=== PATIENT | female | born 1930 | race Caucasian/White ===

== ENCOUNTER 2020-11-08 22:22 | Inpatient (IN) | payer MEDICARE ==
--- NOTE | 2020-11-08 23:00 | ED ---
Weakness HPI - General Stated complaint: Weakness Time Seen by Provider: 11/08/20 22:25 Source: patient Mode of arrival: EMS Limitations: no limitations - History of Present Illness Initial comments: This patient is an 89-year-old woman who presents mainly with the complaint of g eneralized weakness. She states that she would rather not be here, she rather be at home but that she is no longer able to get up and ambulate around her home. She uses a walker and finds that she is just too weak to use it. She denies focal weakness. She states she is weak everywhere. She states this is been getting worse over the past days to weeks. An addition she is having weeping to the bilateral lower extremities related to chronic lymphedema. She has not noted fever or chills. She is denying chest pain or dyspnea. She does have some underlying orthopnea. MD Complaint: generalized weakness -: week(s) Location: generalized Improves with: none Worsens with: exertion Associated Symptoms: rash - Related Data Home Medications Medication Instructions Recorded Confirmed Furosemide [Lasix] 60 mg PO DAILY 11/09/20 11/09/20 Metoprolol Succinate [Toprol XL] 50 mg PO DAILY 11/09/20 11/09/20 Pravastatin Sodium [Pravachol] 20 mg PO DAILY 11/09/20 11/09/20 Rivaroxaban [Xarelto] 15 mg PO HS 11/09/20 11/09/20 lisinopriL [Zestril] 5 mg PO DAILY 11/09/20 11/09/20 Previous Rx's Medication Instructions Recorded Sulfamethox-Tmp 800-160Mg [Bactrim 1 tab PO Q12HR 7 Days #14 tab 11/12/20 DS 800-160 mg] Allergies Allergy/AdvReac Type Severity Reaction Status Date / Time No Known Allergies Allergy Verified 11/09/20 08:29 Review of Systems ROS Statement: Those systems with pertinent positive or pertinent negative responses have been documented in the HPI. ROS Other: All systems not noted in ROS Statement are negative. Constitutional: Reports: weakness. Denies: fever, chills Eyes: Denies: vision change Respiratory: Denies: cough, dyspnea Cardiovascular: Reports: orthopnea, edema. Denies: chest pain, palpitations, syncope Gastrointestinal: Denies: abdominal pain, vomiting, diarrhea Genitourinary: Denies: dysuria, hematuria Musculoskeletal: Denies: back pain Skin: Reports: as per HPI, other (Weeping, bilateral lower extremities). Denies: rash Neurological: Denies: headache, weakness Past Medical History Past Medical History: COPD, Fibromyalgia, GERD/Reflux, Hyperlipidemia, Hypertension, Osteoarthritis (OA), Rheumatoid Arthritis (RA) Additional Past Medical History / Comment(s): IBS, spinal stenosis, basal cell carcinoma History of Any Multi-Drug Resistant Organisms: None Reported Past Surgical History: Appendectomy, Hysterectomy, Orthopedic Surgery, Tonsillectomy Additional Past Surgical History / Comment(s): colonoscopy Past Anesthesia/Blood Transfusion Reactions: No Reported Reaction Past Psychological History: Depression Past Alcohol Use History: None Reported Additional Past Alcohol Use History / Comment(s): She was a smoker of half pack a day for 45 years. She quit 18 years ago. She denies any medical marijuana, marijuana or street drug use. Patient denies any alcohol use or abuse. 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 She is currently living at home with her . There are no pets in the home. They have traveled in the past to [place] but has been a few years. Past Drug Use History: None Reported - Past Family History Mother Family Medical History: Respiratory Disorder ( at age 49 secondary to a cough and respiratory problem.) Father Family Medical History: Cancer (Throat. He had a history of being a greaser operator in the [place] area. He was also smoker. He at age 82.) Sister(s) Family Medical History: Cancer (colon) General Exam General appearance: alert, in no apparent distress Head exam: Present: atraumatic, normocephalic Eye exam: Present: normal appearance. Absent: scleral icterus, conjunctival injection ENT exam: Present: normal oropharynx Neck exam: Present: normal inspection, full ROM Respiratory exam: Present: normal lung sounds bilaterally, rales (Bilateral lower lung alarcon). Absent: respiratory distress, wheezes, rhonchi, stridor Cardiovascular Exam: Present: regular rate, irregular rhythm, normal heart sounds. Absent: systolic murmur, diastolic murmur, rubs, gallop GI/Abdominal exam: Present: soft. Absent: distended, tenderness, guarding, rebound, rigid, mass Back exam: Absent: CVA tenderness (R), CVA tenderness (L), vertebral tenderness Neurological exam: Present: alert Skin exam: Present: warm, dry, erythema, other (To the posterior aspect of the upper portions of bilateral legs, the patient has some desquamation and weeping areas.). Absent: intact, rash Course Vital Signs 11/08/20 11/09/20 11/09/20 22:30 00:06 01:00 Temperature 98.4 F Pulse Rate 82 76 Respiratory 20 19 19 Rate Blood Pressure 115/80 110/71 O2 Sat by Pulse 92 L 92 L Oximetry 11/09/20 11/09/20 11/09/20 02:14 02:29 03:00 Temperature 98.3 F Pulse Rate 89 87 Respiratory 18 16 Rate Blood Pressure 73/42 77/42 95/44 O2 Sat by Pulse 100 100 Oximetry 11/09/20 11/09/20 11/09/20 03:13 03:42 03:57 Temperature Pulse Rate 71 70 Respiratory 19 18 Rate Blood Pressure 95/44 94/47 92/52 O2 Sat by Pulse 96 96 Oximetry 11/09/20 04:39 Temperature Pulse Rate 85 Respiratory 20 Rate Blood Pressure 91/50 O2 Sat by Pulse 100 Oximetry EKG Findings - EKG Results: EKG: interpreted by ERMD, normal axis EKG shows: atrial fibrillation (Rate 109 bpm) - Blocks, [place], Hypertrophy, ST Abn: Repolarization changes or abnormalities: nonspecific abnormality, ST segment, and/or T wave Medical Decision Making - Lab Data Result diagrams: 11/13/20 06:07 11/13/20 06:07 Lab Results 11/09/20 11/09/20 11/09/20 Range/Units 00:05 00:05 00:05 WBC 19.4 H (3.8-10.6) k/uL RBC 3.90 (3.80-5.40) m/uL Hgb 11.6 (11.4-16.0) gm/dL Hct 34.8 (34.0-46.0) % MCV 89.0 (80.0-100.0) fL MCH 29.8 (25.0-35.0) pg MCHC 33.5 (31.0-37.0) g/dL RDW 12.3 (11.5-15.5) % Plt Count 475 H (150-450) k/uL MPV 6.8 Immature Gran % (Auto) % Absolute Nucleated RBC (0.00-0.00) X 10*3/uL Neutrophils % 88 % Lymphocytes % 5 % Monocytes % 4 % Eosinophils % 2 % Basophils % 0 % Immature Gran # (0.00-0.04) X 10*3/uL Neutrophils # 17.1 H (1.3-7.7) k/uL Lymphocytes # 0.9 L (1.0-4.8) k/uL Monocytes # 0.8 (0-1.0) k/uL Eosinophils # 0.4 (0-0.7) k/uL Basophils # 0.1 (0-0.2) k/uL NRBC/100 WBC Diff (0.0-0.0) /100 WBCS PT 11.5 (9.0-12.0) sec INR 1.1 (<1.2) APTT 23.8 (22.0-30.0) sec Sodium 132 L (137-145) mmol/L Potassium 5.2 H (3.5-5.1) mmol/L Chloride 106 (98-107) mmol/L Carbon Dioxide 19 L (22-30) mmol/L Anion Gap 7 mmol/L BUN 51 H (7-17) mg/dL Creatinine 1.71 H (0.52-1.04) mg/dL Est GFR (CKD-EPI)AfAm 30 (>60 ml/min/1.73 sqM) Est GFR (CKD-EPI)NonAf 26 (>60 ml/min/1.73 sqM) BUN/Creatinine Ratio (12.00-20.00) Ratio Glucose 113 H (74-99) mg/dL Plasma Lactic Acid [place] (0.7-2.0) mmol/L Calcium 8.7 (8.4-10.2) mg/dL Phosphorus 4.3 (2.5-4.5) mg/dL Magnesium 1.6 (1.6-2.3) mg/dL Total Bilirubin 0.6 (0.2-1.3) mg/dL AST 33 (14-36) U/L ALT 17 (4-34) U/L Alkaline Phosphatase 104 (38-126) U/L Troponin I (0.000-0.034) ng/mL NT-Pro-B Natriuret Pep pg/mL Total Protein 6.8 (6.3-8.2) g/dL Albumin 2.7 L (3.5-5.0) g/dL Globulin (1.6-3.3) g/dL Albumin/Globulin Ratio (1.60-3.17) g/dL TSH 2.350 (0.465-4.680) mIU/L Urine Color Urine Appearance (Clear) Urine pH (5.0-8.0) Ur Specific [place] (1.001-1.035) Urine Protein (Negative) Urine Glucose (UA) (Negative) Urine Ketones (Negative) Urine Blood (Negative) Urine Nitrite (Negative) Urine Bilirubin (Negative) Urine Urobilinogen (<2.0) mg/dL Ur Leukocyte Esterase (Negative) Urine RBC (0-5) /hpf Urine WBC (0-5) /hpf Urine WBC Clumps (None) /hpf Ur Squamous Epith Cells (0-4) /hpf Urine Bacteria (None) /hpf Urine Mucus (None) /hpf Influenza Type A (PCR) (Not Detectd) Influenza Type B (PCR) (Not Detectd) RSV (PCR) (Not Detectd) SARS-CoV-2 (PCR) (Not Detectd) 11/09/20 11/09/20 11/09/20 Range/Units 00:05 00:05 00:05 WBC (3.8-10.6) k/uL RBC (3.80-5.40) m/uL Hgb (11.4-16.0) gm/dL Hct (34.0-46.0) % MCV (80.0-100.0) fL MCH (25.0-35.0) pg MCHC (31.0-37.0) g/dL RDW (11.5-15.5) % Plt Count (150-450) k/uL MPV Immature Gran % (Auto) % Absolute Nucleated RBC (0.00-0.00) X 10*3/uL Neutrophils % % Lymphocytes % % Monocytes % % Eosinophils % % Basophils % % Immature Gran # (0.00-0.04) X 10*3/uL Neutrophils # (1.3-7.7) k/uL Lymphocytes # (1.0-4.8) k/uL Monocytes # (0-1.0) k/uL Eosinophils # (0-0.7) k/uL Basophils # (0-0.2) k/uL NRBC/100 WBC Diff (0.0-0.0) /100 WBCS PT (9.0-12.0) sec INR (<1.2) APTT (22.0-30.0) sec Sodium (137-145) mmol/L Potassium (3.5-5.1) mmol/L Chloride (98-107) mmol/L Carbon Dioxide (22-30) mmol/L Anion Gap mmol/L BUN (7-17) mg/dL Creatinine (0.52-1.04) mg/dL Est GFR (CKD-EPI)AfAm (>60 ml/min/1.73 sqM) Est GFR (CKD-EPI)NonAf (>60 ml/min/1.73 sqM) BUN/Creatinine Ratio (12.00-20.00) Ratio Glucose (74-99) mg/dL Plasma Lactic Acid [place] 1.6 (0.7-2.0) mmol/L Calcium (8.4-10.2) mg/dL Phosphorus (2.5-4.5) mg/dL Magnesium (1.6-2.3) mg/dL Total Bilirubin (0.2-1.3) mg/dL AST (14-36) U/L ALT (4-34) U/L Alkaline Phosphatase (38-126) U/L Troponin I 0.015 (0.000-0.034) ng/mL NT-Pro-B Natriuret Pep 3780 pg/mL Total Protein (6.3-8.2) g/dL Albumin (3.5-5.0) g/dL Globulin (1.6-3.3) g/dL Albumin/Globulin Ratio (1.60-3.17) g/dL TSH (0.465-4.680) mIU/L Urine Color Urine Appearance (Clear) Urine pH (5.0-8.0) Ur Specific [place] (1.001-1.035) Urine Protein (Negative) Urine Glucose (UA) (Negative) Urine Ketones (Negative) Urine Blood (Negative) Urine Nitrite (Negative) Urine Bilirubin (Negative) Urine Urobilinogen (<2.0) mg/dL Ur Leukocyte Esterase (Negative) Urine RBC (0-5) /hpf Urine WBC (0-5) /hpf Urine WBC Clumps (None) /hpf Ur Squamous Epith Cells (0-4) /hpf Urine Bacteria (None) /hpf Urine Mucus (None) /hpf Influenza Type A (PCR) (Not Detectd) Influenza Type B (PCR) (Not Detectd) RSV (PCR) (Not Detectd) SARS-CoV-2 (PCR) (Not Detectd) 11/09/20 11/09/20 11/09/20 Range/Units 03:54 03:54 06:57 WBC 15.17 H (3.8-10.6) k/uL RBC 3.35 L (3.80-5.40) m/uL Hgb 9.6 L (11.4-16.0) gm/dL Hct 30.9 L (34.0-46.0) % MCV 92.2 (80.0-100.0) fL MCH 28.7 (25.0-35.0) pg MCHC 31.1 L (31.0-37.0) g/dL RDW 12.6 (11.5-15.5) % Plt Count 381 (150-450) k/uL MPV 9.2 L Immature Gran % (Auto) 0.7 % Absolute Nucleated RBC 0 (0.00-0.00) X 10*3/uL Neutrophils % 77.6 % Lymphocytes % 11.2 % Monocytes % 8.3 % Eosinophils % 1.7 % Basophils % 0.5 % Immature Gran # 0.10 H (0.00-0.04) X 10*3/uL Neutrophils # 11.78 H (1.3-7.7) k/uL Lymphocytes # 1.70 (1.0-4.8) k/uL Monocytes # 1.26 H (0-1.0) k/uL Eosinophils # 0.26 (0-0.7) k/uL Basophils # 0.07 (0-0.2) k/uL NRBC/100 WBC Diff 0 (0.0-0.0) /100 WBCS PT (9.0-12.0) sec INR (<1.2) APTT (22.0-30.0) sec Sodium (137-145) mmol/L Potassium (3.5-5.1) mmol/L Chloride (98-107) mmol/L Carbon Dioxide (22-30) mmol/L Anion Gap mmol/L BUN (7-17) mg/dL Creatinine (0.52-1.04) mg/dL Est GFR (CKD-EPI)AfAm (>60 ml/min/1.73 sqM) Est GFR (CKD-EPI)NonAf (>60 ml/min/1.73 sqM) BUN/Creatinine Ratio (12.00-20.00) Ratio Glucose (74-99) mg/dL Plasma Lactic Acid [place] (0.7-2.0) mmol/L Calcium (8.4-10.2) mg/dL Phosphorus (2.5-4.5) mg/dL Magnesium (1.6-2.3) mg/dL Total Bilirubin (0.2-1.3) mg/dL AST (14-36) U/L ALT (4-34) U/L Alkaline Phosphatase (38-126) U/L Troponin I (0.000-0.034) ng/mL NT-Pro-B Natriuret Pep pg/mL Total Protein (6.3-8.2) g/dL Albumin (3.5-5.0) g/dL Globulin (1.6-3.3) g/dL Albumin/Globulin Ratio (1.60-3.17) g/dL TSH (0.465-4.680) mIU/L Urine Color Yellow Urine Appearance Cloudy H (Clear) Urine pH 5.0 (5.0-8.0) Ur Specific [place] 1.017 (1.001-1.035) Urine Protein 1+ H (Negative) Urine Glucose (UA) Negative (Negative) Urine Ketones Negative (Negative) Urine Blood Trace H (Negative) Urine Nitrite Negative (Negative) Urine Bilirubin Negative (Negative) Urine Urobilinogen <2.0 (<2.0) mg/dL Ur Leukocyte Esterase Large H (Negative) Urine RBC 11 H (0-5) /hpf Urine WBC >182 H (0-5) /hpf Urine WBC Clumps Few H (None) /hpf Ur Squamous Epith Cells 2 (0-4) /hpf Urine Bacteria Many H (None) /hpf Urine Mucus Rare H (None) /hpf Influenza Type A (PCR) Not Detected (Not Detectd) Influenza Type B (PCR) Not Detected (Not Detectd) RSV (PCR) Not Detected (Not Detectd) SARS-CoV-2 (PCR) Not Detected (Not Detectd) 11/09/20 11/09/20 11/10/20 Range/Units 06:57 18:13 06:20 WBC 13.25 H (3.8-10.6) k/uL RBC 3.52 L (3.80-5.40) m/uL Hgb 10.0 L (11.4-16.0) gm/dL Hct 32.5 L (34.0-46.0) % MCV 92.3 (80.0-100.0) fL MCH 28.4 (25.0-35.0) pg MCHC 30.8 L (31.0-37.0) g/dL RDW 12.8 (11.5-15.5) % Plt Count 471 H (150-450) k/uL MPV 9.0 L Immature Gran % (Auto) 0.5 % Absolute Nucleated RBC 0 (0.00-0.00) X 10*3/uL Neutrophils % 71.8 % Lymphocytes % 14.7 % Monocytes % 8.6 % Eosinophils % 3.9 % Basophils % 0.5 % Immature Gran # 0.07 H (0.00-0.04) X 10*3/uL Neutrophils # 9.51 H (1.3-7.7) k/uL Lymphocytes # 1.95 (1.0-4.8) k/uL Monocytes # 1.14 H (0-1.0) k/uL Eosinophils # 0.52 H (0-0.7) k/uL Basophils # 0.06 (0-0.2) k/uL NRBC/100 WBC Diff 0 (0.0-0.0) /100 WBCS PT (9.0-12.0) sec INR (<1.2) APTT (22.0-30.0) sec Sodium 133 L (137-145) mmol/L Potassium 4.9 (3.5-5.1) mmol/L Chloride 106 (98-107) mmol/L Carbon Dioxide 18.7 L (22-30) mmol/L Anion Gap 8.30 mmol/L BUN 52.0 H (7-17) mg/dL Creatinine 1.5 (0.52-1.04) mg/dL Est GFR (CKD-EPI)AfAm 35.7 L (>60 ml/min/1.73 sqM) Est GFR (CKD-EPI)NonAf 30.8 L (>60 ml/min/1.73 sqM) BUN/Creatinine Ratio 34.67 H (12.00-20.00) Ratio Glucose 97 (74-99) mg/dL Plasma Lactic Acid [place] 1.3 (0.7-2.0) mmol/L Calcium 8.1 L (8.4-10.2) mg/dL Phosphorus (2.5-4.5) mg/dL Magnesium (1.6-2.3) mg/dL Total Bilirubin 0.4 (0.2-1.3) mg/dL AST 26 (14-36) U/L ALT 17 (4-34) U/L Alkaline Phosphatase 83 (38-126) U/L Troponin I (0.000-0.034) ng/mL NT-Pro-B Natriuret Pep pg/mL Total Protein 5.7 L (6.3-8.2) g/dL Albumin 2.50 L (3.5-5.0) g/dL Globulin 3.2 (1.6-3.3) g/dL Albumin/Globulin Ratio 0.78 L (1.60-3.17) g/dL TSH (0.465-4.680) mIU/L Urine Color Urine Appearance (Clear) Urine pH (5.0-8.0) Ur Specific [place] (1.001-1.035) Urine Protein (Negative) Urine Glucose (UA) (Negative) Urine Ketones (Negative) Urine Blood (Negative) Urine Nitrite (Negative) Urine Bilirubin (Negative) Urine Urobilinogen (<2.0) mg/dL Ur Leukocyte Esterase (Negative) Urine RBC (0-5) /hpf Urine WBC (0-5) /hpf Urine WBC Clumps (None) /hpf Ur Squamous Epith Cells (0-4) /hpf Urine Bacteria (None) /hpf Urine Mucus (None) /hpf Influenza Type A (PCR) (Not Detectd) Influenza Type B (PCR) (Not Detectd) RSV (PCR) (Not Detectd) SARS-CoV-2 (PCR) (Not Detectd) 11/10/20 Range/Units 06:20 WBC (3.8-10.6) k/uL RBC (3.80-5.40) m/uL Hgb (11.4-16.0) gm/dL Hct (34.0-46.0) % MCV (80.0-100.0) fL MCH (25.0-35.0) pg MCHC (31.0-37.0) g/dL RDW (11.5-15.5) % Plt Count (150-450) k/uL MPV Immature Gran % (Auto) % Absolute Nucleated RBC (0.00-0.00) X 10*3/uL Neutrophils % % Lymphocytes % % Monocytes % % Eosinophils % % Basophils % % Immature Gran # (0.00-0.04) X 10*3/uL Neutrophils # (1.3-7.7) k/uL Lymphocytes # (1.0-4.8) k/uL Monocytes # (0-1.0) k/uL Eosinophils # (0-0.7) k/uL Basophils # (0-0.2) k/uL NRBC/100 WBC Diff (0.0-0.0) /100 WBCS PT (9.0-12.0) sec INR (<1.2) APTT (22.0-30.0) sec Sodium 137 (137-145) mmol/L Potassium 4.8 (3.5-5.1) mmol/L Chloride 106 (98-107) mmol/L Carbon Dioxide 21.8 (22-30) mmol/L Anion Gap 9.20 mmol/L BUN 50.0 H (7-17) mg/dL Creatinine 1.8 H (0.52-1.04) mg/dL Est GFR (CKD-EPI)AfAm 28.6 L (>60 ml/min/1.73 sqM) Est GFR (CKD-EPI)NonAf 24.7 L (>60 ml/min/1.73 sqM) BUN/Creatinine Ratio 27.78 H (12.00-20.00) Ratio Glucose 88 (74-99) mg/dL Plasma Lactic Acid [place] (0.7-2.0) mmol/L Calcium 7.9 L (8.4-10.2) mg/dL Phosphorus (2.5-4.5) mg/dL Magnesium 1.6 (1.6-2.3) mg/dL Total Bilirubin (0.2-1.3) mg/dL AST (14-36) U/L ALT (4-34) U/L Alkaline Phosphatase (38-126) U/L Troponin I (0.000-0.034) ng/mL NT-Pro-B Natriuret Pep pg/mL Total Protein (6.3-8.2) g/dL Albumin (3.5-5.0) g/dL Globulin (1.6-3.3) g/dL Albumin/Globulin Ratio (1.60-3.17) g/dL TSH (0.465-4.680) mIU/L Urine Color Urine Appearance (Clear) Urine pH (5.0-8.0) Ur Specific [place] (1.001-1.035) Urine Protein (Negative) Urine Glucose (UA) (Negative) Urine Ketones (Negative) Urine Blood (Negative) Urine Nitrite (Negative) Urine Bilirubin (Negative) Urine Urobilinogen (<2.0) mg/dL Ur Leukocyte Esterase (Negative) Urine RBC (0-5) /hpf Urine WBC (0-5) /hpf Urine WBC Clumps (None) /hpf Ur Squamous Epith Cells (0-4) /hpf Urine Bacteria (None) /hpf Urine Mucus (None) /hpf Influenza Type A (PCR) (Not Detectd) Influenza Type B (PCR) (Not Detectd) RSV (PCR) (Not Detectd) SARS-CoV-2 (PCR) (Not Detectd) Disposition Clinical Impression: Bilateral cellulitis of lower leg, Debility, unspecified Disposition: ADMITTED IP TO THIS HOSP Condition: Stable
[2020-11-09 00:11] LABS: Basophils # (A) 0.1 k/uL (0-0.2); Basophils % (A) 0 %; Eosinophils # (A) 0.4 k/uL (0-0.7); Eosinophils % (A) 2 %; HCT 34.8 % (34.0-46.0); HGB 11.6 gm/dL (11.4-16.0); Lymphocytes # (A) 0.9 k/uL (1.0-4.8); Lymphocytes % (A) 5 %; MCH 29.8 pg (25.0-35.0); MCHC 33.5 g/dL (31.0-37.0); Mean Platelet Volume 6.8; Monocytes # (A) 0.8 k/uL (0-1.0); Monocytes % (A) 4 %; Neutrophils # (A) 17.1 k/uL (1.3-7.7); Neutrophils % (A) 88 %; Platelet Count 475 k/uL (150-450); RDW 12.3 % (11.5-15.5); WBC 19.4 k/uL (3.8-10.6)
[2020-11-09 00:29] LABS: Albumin 2.7 g/dL (3.5-5.0); Calcium 8.7 mg/dL (8.4-10.2); Magnesium 1.6 mg/dL (1.6-2.3); Phosphorus 4.3 mg/dL (2.5-4.5); Potassium 5.2 mmol/L (3.5-5.1); Total Bilirubin 0.6 mg/dL (0.2-1.3); Total Protein 6.8 g/dL (6.3-8.2)
[2020-11-09 00:36] LABS: INR 1.1 (<1.2); Partial Thromboplastin Time 23.8 sec (22.0-30.0); Prothrombin Time 11.5 sec (9.0-12.0)
--- NOTE | 2020-11-09 01:06 | XR ---
EXAM: XR Chest, 1 View CLINICAL HISTORY: ITS.REASON XR Reason: Weakness TECHNIQUE: Frontal view of the chest. COMPARISON: 03/14/14. FINDINGS: Lungs: Bilateral interstitial prominence. Hilar opacities, more prominent on the right. Pleural space: No significant pleural effusion or pneumothorax. Heart: Stable cardiomediastinal silhouette. Mediastinum: See above. Bones/joints: Age-indeterminate deformity of the right humeral head/neck. IMPRESSION: 1. Bilateral interstitial prominence. Correlate clinically regarding edema or infection. 2. Hilar opacities, more prominent on the right. The possibility of adenopathy/mass or infiltrate is not excluded.
[2020-11-09] MEDS ORDERED: NAFCILLIN 2 GM in DEXTROSE 5% IN WATER 100 ML IVPB STA ×2 (01:38)
[2020-11-09] MEDS: diazePAM 2 MG TAB PO STA ×2 (02:14→06:15)
[2020-11-09] MEDS ORDERED: NALOXONE 0.4 MG/ML 1 ML VIAL IV PRN (02:59)
[2020-11-09] MEDS ORDERED: ACETAMINOPHEN TAB 325 MG TAB PO PRN (02:59)
[2020-11-09 04:16] LABS: Appearance,Urine Cloudy (Clear); Bacteria,Urine Many /hpf; Bilirubin,Urine Negative (Negative); Blood,Urine Trace (Negative); Color,Urine Yellow; Glucose,Urine (UA) Negative (Negative); Ketones,Urine Negative (Negative); Leukocyte Esterase,Urine Large (Negative); Mucus,Urine Rare /hpf; Nitrite,Urine Negative (Negative); Protein,Urine 1+ (Negative); RBC,Urine 11 /hpf (0-5); Specific Gravity,Urine 1.017 (1.001-1.035); Squamous Epithelial Cell,Urine 2 /hpf (0-4); Urobilinogen,Urine <2.0 mg/dL (<2.0); WBC,Urine >182 /hpf (0-5)
--- NOTE | 2020-11-09 05:13 | P.HPIM ---
History of Present Illness H&P Date: 11/09/20 Chief Complaint: generailzed weakness 89 year old female with chronic lymphedema , hypertension , COPD , arthritis patient comes from home, she does not elaborate during the interview, but reports that she lives in her own home, with her son who does not really pay a lot of attention to her needs. she ambulates using a walker, but over past 2 years she has been getting worse, and over past 1 week she has not been able to walk around anymore due to debility and feeling very weak despite trying to use a walker. she has chronic lymphedema and noticed weeping from her legs . she otherwise denies any fever, chills, chest pain , nausea or vomiting, . she denies SOB at rest, but she gets winded easily if she tries to stand up. she denies any GI bleeding . she does not have a doctor , but used to have a visiting nurse. she is not sure what medications she is supposed to take, but claims that there is a cementer hand who refills her meds she denies any GI bleeding , abd pain , nausea or vomiting . she admits to having a fall about 2 weeks ago, but she fell safely on a couch in the ED< blood work showed, leukocytosis , elevated creatinine CXR suggestive of pulmonary congestion , and possible hilar mass. Review of Systems Pertinent positives as noted in HPI. All other systems were reviewed and are negative Past Medical History Past Medical History: COPD, Fibromyalgia, GERD/Reflux, Hyperlipidemia, Hypertension, Osteoarthritis (OA), Rheumatoid Arthritis (RA) Additional Past Medical History / Comment(s): IBS, spinal stenosis, basal cell carcinoma History of Any Multi-Drug Resistant Organisms: None Reported Past Surgical History: Appendectomy, Hysterectomy, Orthopedic Surgery, Tonsillectomy Additional Past Surgical History / Comment(s): colonoscopy Past Anesthesia/Blood Transfusion Reactions: No Reported Reaction Past Psychological History: Depression Past Alcohol Use History: None Reported Additional Past Alcohol Use History / Comment(s): She was a smoker of half pack a day for 45 years. She quit 18 years ago. She denies any medical marijuana, marijuana or street drug use. Patient denies any alcohol use or abuse. 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 She is currently living at home with her . There are no pets in the home. They have traveled in the past to [place] but has been a few years. Past Drug Use History: None Reported - Past Family History Mother Family Medical History: Respiratory Disorder ( at age 49 secondary to a cough and respiratory problem.) Father Family Medical History: Cancer (Throat. He had a history of being a coagulating bath mixer in the [place] area. He was also smoker. He at age 82.) Sister(s) Family Medical History: Cancer (colon) Medications and Allergies Home Medications Medication Instructions Recorded Confirmed Type Adalimumab [Humira Pen] 40 mg SQ [id number] 01/05/14 01/05/14 History Shai Cit/Mag/D3/Zn/Renewable [employer] Project Manager/Marquez/Bor 1 each PO DAILY 01/05/14 01/05/14 History [Citracal-D3 Plus Magnesium Tab] Esomeprazole Magnesium [NexIUM] 40 mg PO DAILY 01/05/14 01/05/14 History Fluticasone Propionate [Flonase] 1 spray EA NOSTRIL DAILY PRN 01/05/14 01/05/14 History Furosemide [Lasix] 40 mg PO DAILY 01/05/14 01/05/14 History Montelukast [Singulair] 10 mg PO DAILY 01/05/14 01/05/14 History Pravastatin Sodium [Pravachol] 40 mg PO HS 01/05/14 01/05/14 History Triamcinolone 0.1% Cream [Kenalog] 1 applic TOPICAL TID 01/05/14 01/05/14 History Amoxicillin/Potassium Clav 1 each PO Q12HR 10 Days tab 01/17/14 Rx [Augmentin 875-125 Tablet] Acetaminophen Tab [Tylenol] 650 mg PO Q6HR PRN #1 tab 01/18/14 Rx Budesonide [Pulmicort] 1 mg INHALATION RT-BID #1 nebu 01/18/14 Rx Cetirizine HCl [Zyrtec] 10 mg PO HS #1 01/18/14 01/05/14 Rx HYDROcodone/APAP 5-325MG [[place] 1 each PO Q6HR PRN #30 tab 01/18/14 Rx 5-325] Ipratropium Nebulized [Atrovent 0.5 mg INHALATION RT-QID #1 nebu 01/18/14 Rx Nebulized 0.2 MG/ML] Levalbuterol Nebulized (Conc) 1.25 mg INHALATION RT-QID #1 ml 01/18/14 Rx [Xopenex Nebulized (Conc)] Magnesium Hydroxide [Milk of 2,400 mg PO DAILY PRN #1 ml 01/18/14 Rx Magnesia Concentrate] Metoprolol Tartrate [Lopressor] 75 mg PO BID #1 tab 01/18/14 Rx Multivitamins, Thera [Multivitamin 1 each PO DAILY@1200 #1 tab 01/18/14 Rx (formulary)] Nystatin 100,000 Unit/ml Susp 500,000 unit PO QID #1 cup 01/18/14 Rx [Mycostatin Oral Susp] Potassium Chloride ER [K-Dur 20] 20 meq PO BID #1 tab.er.prt 01/18/14 Rx Rivaroxaban [Xarelto] 15 mg PO BID #1 tab 01/18/14 Rx Sennosides-Docusate Sodium 2 each PO HS #1 tab 01/18/14 Rx [Senokot-S] bisacodyL [Dulcolax] 5 mg PO DAILY PRN #1 tablet. 01/18/14 Rx Allergies Allergy/AdvReac Type Severity Reaction Status Date / Time No Known Allergies Allergy Verified 03/14/14 10:27 Physical Exam Vitals: Vital Signs Temp Pulse Resp BP Pulse Ox 11/09/20 04:39 85 20 91/50 100 11/09/20 03:57 70 18 92/52 96 11/09/20 03:42 94/47 11/09/20 03:13 71 19 95/44 96 11/09/20 03:00 95/44 11/09/20 02:29 87 16 77/42 100 11/09/20 02:14 98.3 F 89 18 73/42 100 11/09/20 00:06 76 19 110/71 92 L 11/08/20 22:30 98.4 F 82 20 115/80 92 L Intake and Output 11/08/20 11/08/20 11/09/20 14:59 22:59 06:59 Other: Weight 117.934 kg Constitutional: No acute distress, conversant, pleasant Eyes: Anicteric sclerae, clinical pallor , moist conjunctiva, Pupils equal round reactive to light ENMT: NC/AT Oropharynx clear, no erythema, or exudates Neck: Supple, FROM, no masses, or JVD No carotid bruits No thyromegaly Lungs: decrease breath sounds over lung bases due to poor effort , with inspiratory rales Clear to percussion Normal respiratory effort, no accessory muscle use Cardiovascular: Heart irregular in rate and rhythm, No murmurs, gallops, or rubs +3 bilateral peripheral edema Abdominal: Soft Nontender, no guarding, rebound or rigidity Abdomen moving with respiration Normoactive bowel sounds No palpable mass No abdominal wall hernia noted Skin: ED reported decubitus ulcer with possible infection (surrounding erythema and induration ) , bilateral inner thigh irritation with erythema and weeping edema otherwise Normal temperature, tone, texture, turgor Extremities: No digital cyanosis No clubbing Pedal pulses not palpable due to pedal edema , capillary refill immediate symmetrical Radial pulses intact and symmetrical No calf tenderness Psychiatric: Alert and oriented to person, place Appropriate affect fair judgement Neuro Muscles Strength 3/5 in bilateral lower extremities and 4/5 in bilateral upper extremities Sensation to light touch grossly present throughout Cranial nerves II-XII grossly intact No focal sensory deficits Lymphatics: no palpable cervical or supraclavicular , or inguinal lymph nodes Results CBC & Chem 7: 11/09/20 00:05 11/09/20 00:05 Labs: Abnormal Lab Results - Last 24 Hours (Table) 11/09/20 11/09/20 11/09/20 Range/Units 00:05 00:05 03:54 WBC 19.4 H (3.8-10.6) k/uL Plt Count 475 H (150-450) k/uL Neutrophils # 17.1 H (1.3-7.7) k/uL Lymphocytes # 0.9 L (1.0-4.8) k/uL Sodium 132 L (137-145) mmol/L Potassium 5.2 H (3.5-5.1) mmol/L Carbon Dioxide 19 L (22-30) mmol/L BUN 51 H (7-17) mg/dL Creatinine 1.71 H (0.52-1.04) mg/dL Glucose 113 H (74-99) mg/dL Albumin 2.7 L (3.5-5.0) g/dL Urine Appearance Cloudy H (Clear) Urine Protein 1+ H (Negative) Urine Blood Trace H (Negative) Ur Leukocyte Esterase Large H (Negative) Urine RBC 11 H (0-5) /hpf Urine WBC >182 H (0-5) /hpf Urine WBC Clumps Few H (None) /hpf Urine Bacteria Many H (None) /hpf Urine Mucus Rare H (None) /hpf Assessment and Plan Assessment: cellulitis possibly infected decubitus ulcer present on admission JUAN CARLOS follow up cultures empiric antibiotics with naficillin to cover anaerobes supportive care PT eval wound care pain control with norco Gentle IVF hydration verify home medication chronic condition s P. 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
[2020-11-09] MEDS ORDERED: HYDROcodone/APAP 5-325MG 1 EACH TAB PO PRN (05:14)
[2020-11-09] MEDS: SODIUM CHLORIDE 0.9% 1,000 ML IV SCH (06:23)
[2020-11-09] MEDS: NAFCILLIN 2 GM in DEXTROSE 5% IN WATER 100 ML IVPB SCH ×8 (08:07→21:32)
[2020-11-09] MEDS: FAMOTIDINE 20 MG TAB PO SCH (08:12)
[2020-11-09] MEDS ORDERED: HEPARIN SODIUM,PORCINE/PF 5,000 UNIT/0.5 ML SYRINGE SQ SCH (09:00)
[2020-11-09 11:06] LABS: Basophils # (A) 0.07 X 10*3/uL (0.00-0.10); Basophils % (A) 0.5 %; Eosinophils # (A) 0.26 X 10*3/uL (0.04-0.35); Eosinophils % (A) 1.7 %; HCT 30.9 % (37.2-46.3); HGB 9.6 g/dL (12.0-15.0); Lymphocytes % (A) 11.2 %; MCH 28.7 pg (27.0-32.0); MCHC 31.1 g/dL (32.0-37.0); MCV 92.2 fL (80.0-97.0); Mean Platelet Volume 9.2 fL (9.5-12.2); Monocytes # (A) 1.26 X 10*3/uL (0.20-1.00); Monocytes % (A) 8.3 %; Neutrophils # (A) 11.78 X 10*3/uL (1.80-7.70); Neutrophils % (A) 77.6 %; Platelet Count 381 X 10*3/uL (140-440); RBC 3.35 X 10*6/uL (4.10-5.20); RDW 12.6 % (11.5-14.5); WBC 15.17 X 10*3/uL (4.50-10.00)
[2020-11-09 14:24] LABS: African American GFR (CKD) 35.7 (60.0-200.0); Albumin 2.5 g/dL (3.80-4.90); Albumin/Globulin Ratio 0.78 (1.60-3.17); Anion Gap 8.3 mmol/L (4.00-12.00); BUN/Creat Ratio 34.67 Ratio (12.00-20.00); Calcium 8.1 mg/dL (8.7-10.3); Carbon Dioxide 18.7 mmol/L (21.6-31.8); Globulin 3.2 g/dL (1.6-3.3); Non-African American GFR(CKD) 30.8 (60.0-200.0); Potassium 4.9 mmol/L (3.5-5.5); Total Bilirubin 0.4 mg/dL (0.2-1.2); Total Protein 5.7 g/dL (6.2-8.2)
--- NOTE | 2020-11-09 17:04 | P.PN ---
Progress Note - Text Progress Note Date: 11/09/20 Pt seen and evaluated today at bedside. I agree with the documented assessment and plan completed by my colleague earlier this morning. Pending wound care consultation. Patient is on empiric abx which is improving her WBC - and patient reports feeling better. Hgb has decreased 2pts, however, this may be hemo-dilution as all cell lines have decreased - continue to monitor daily. Home medications were reconciled.
[2020-11-09] MEDS: RIVAROXABAN 15 MG TAB PO SCH (21:33)
[2020-11-10] MEDS: NAFCILLIN 2 GM in DEXTROSE 5% IN WATER 100 ML IVPB SCH ×8 (03:39→19:29)
[2020-11-10] MEDS: SODIUM CHLORIDE 0.9% 1,000 ML IV SCH (03:40)
[2020-11-10 10:42] VITALS: BMI 46.0
[2020-11-10] MEDS: FAMOTIDINE 20 MG TAB PO SCH (11:01)
[2020-11-10] MEDS: PRAVASTATIN SODIUM 20 MG TAB PO SCH (11:01)
[2020-11-10] MEDS: FUROSEMIDE 20 MG TAB PO SCH (11:01)
[2020-11-10] MEDS: METOPROLOL SUCCINATE (ER) 50 MG TAB.ER.24H PO SCH (11:02)
[2020-11-10] MEDS: lisinopriL 5 MG TAB PO SCH (11:02)
[2020-11-10 11:46] LABS: Basophils # (A) 0.06 X 10*3/uL (0.00-0.10); Basophils % (A) 0.5 %; Eosinophils # (A) 0.52 X 10*3/uL (0.04-0.35); Eosinophils % (A) 3.9 %; HCT 32.5 % (37.2-46.3); Lymphocytes # (A) 1.95 X 10*3/uL (0.90-5.00); Lymphocytes % (A) 14.7 %; MCH 28.4 pg (27.0-32.0); MCHC 30.8 g/dL (32.0-37.0); MCV 92.3 fL (80.0-97.0); Monocytes # (A) 1.14 X 10*3/uL (0.20-1.00); Monocytes % (A) 8.6 %; Neutrophils # (A) 9.51 X 10*3/uL (1.80-7.70); Neutrophils % (A) 71.8 %; Platelet Count 471 X 10*3/uL (140-440); RBC 3.52 X 10*6/uL (4.10-5.20); RDW 12.8 % (11.5-14.5); WBC 13.25 X 10*3/uL (4.50-10.00)
[2020-11-10 12:03] LABS: African American GFR (CKD) 28.6 (60.0-200.0); Anion Gap 9.2 mmol/L (4.00-12.00); BUN/Creat Ratio 27.78 Ratio (12.00-20.00); Calcium 7.9 mg/dL (8.7-10.3); Carbon Dioxide 21.8 mmol/L (21.6-31.8); Magnesium 1.6 mg/dL (1.5-2.4); Non-African American GFR(CKD) 24.7 (60.0-200.0); Potassium 4.8 mmol/L (3.5-5.5)
--- NOTE | 2020-11-10 12:11 | P.PN ---
Subjective Progress Note Date: 11/10/20 Feels okay, no chest pain no abdominal pain no nausea no vomiting no dizziness Objective - Vital Signs Vital signs: Vital Signs Temp 97.6 F 11/10/20 07:35 Pulse 81 11/10/20 07:35 Resp 18 11/10/20 07:35 BP 98/61 11/10/20 07:35 Pulse Ox 92 L 11/10/20 07:35 Intake & Output 11/09/20 11/10/20 11/10/20 18:59 06:59 18:59 Intake Total 300 Balance 300 Weight 117.934 kg Intake: Oral 300 Other: Voiding Method Diaper Diaper Incontinent Incontinent Incontinent External Catheter External Catheter # Voids 2 3 - Exam Constitutional: No acute distress, conversant, pleasant Eyes: Anicteric sclerae, moist conjunctiva ENMT: NC/AT Neck:Supple Lungs: Clear to auscultation, Clear to percussion, Normal respiratory effort, no accessory muscle use Cardiovascular: Heart regular in rate and rhythm, No murmurs, gallops, or rubs no peripheral edema Abdominal: Soft Nontender, non distended Extremities:No digital cyanosis No clubbing, 1-2 bilateral lower extremity edema Psychiatric: Alert and oriented to person, place and time, Appropriate affect Intact judgement Neuro: Muscles Strength 5/5 in all 4 extremities, Sensation to light touch nickolas sly present throughout, Cranial nerves II-XII grossly intact. No focal sensory deficits - Labs CBC & Chem 7: 11/10/20 06:20 11/10/20 06:20 Labs: Abnormal Lab Results - Last 24 Hours (Table) 11/09/20 11/10/20 11/10/20 Range/Units 06:57 06:20 06:20 WBC 13.25 H (4.50-10.00) X 10*3/uL RBC 3.52 L (4.10-5.20) X 10*6/uL Hgb 10.0 L (12.0-15.0) g/dL Hct 32.5 L (37.2-46.3) % MCHC 30.8 L (32.0-37.0) g/dL Plt Count 471 H (140-440) X 10*3/uL MPV 9.0 L (9.5-12.2) fL Immature Gran # 0.07 H (0.00-0.04) X 10*3/uL Neutrophils # 9.51 H (1.80-7.70) X 10*3/uL Monocytes # 1.14 H (0.20-1.00) X 10*3/uL Eosinophils # 0.52 H (0.04-0.35) X 10*3/uL Sodium 133 L (135-145) mmol/L Carbon Dioxide 18.7 L (21.6-31.8) mmol/L BUN 52.0 H 50.0 H (9.0-27.0) mg/dL Creatinine 1.8 H (0.6-1.5) mg/dL Est GFR (CKD-EPI)AfAm 35.7 L 28.6 L (60.0-200.0) Est GFR (CKD-EPI)NonAf 30.8 L 24.7 L (60.0-200.0) BUN/Creatinine Ratio 34.67 H 27.78 H (12.00-20.00) Ratio Calcium 8.1 L 7.9 L (8.7-10.3) mg/dL Total Protein 5.7 L (6.2-8.2) g/dL Albumin 2.50 L (3.80-4.90) g/dL Albumin/Globulin Ratio 0.78 L (1.60-3.17) g/dL Microbiology - Last 24 Hours (Table) 11/09/20 03:54 Urine Culture - Preliminary Urine,Voided Assessment and Plan Plan: 1. cellulitis possibly infected decubitus ulcer present on admission : Continue antibiotics with nafcillin, wound care consult 2. JUAN CARLOS serum creatinine 1.5, continue to monitor, stop IV fluids. chronic conditions P. 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
[2020-11-10] MEDS ORDERED: Magnesium Replacement Protocol 1 EACH MISC MISCELLANE PRN (13:14)
[2020-11-10] MEDS: MAGNESIUM SULFATE-D5W PMX 1 GM in DEXTROSE/WATER 1 100ML.BAG IVPB SCH ×2 (13:20→14:38)
[2020-11-10] MEDS: ONDANSETRON 4 MG/2 ML VIAL IVP PRN (14:41)
[2020-11-10] MEDS: RIVAROXABAN 15 MG TAB PO SCH (19:30)
[2020-11-11] MEDS: NAFCILLIN 2 GM in DEXTROSE 5% IN WATER 100 ML IVPB SCH ×4 (01:01→09:03)
[2020-11-11] MEDS: lisinopriL 5 MG TAB PO SCH (09:03)
[2020-11-11] MEDS: FUROSEMIDE 20 MG TAB PO SCH (09:03)
[2020-11-11] MEDS: PRAVASTATIN SODIUM 20 MG TAB PO SCH (09:03)
[2020-11-11] MEDS: METOPROLOL SUCCINATE (ER) 50 MG TAB.ER.24H PO SCH (09:03)
[2020-11-11] MEDS: FAMOTIDINE 20 MG TAB PO SCH (09:03)
[2020-11-11] MEDS: ONDANSETRON 4 MG/2 ML VIAL IVP PRN ×3 (09:36→19:42)
[2020-11-11 09:38] LABS: Basophils # (A) 0.07 X 10*3/uL (0.00-0.10); Basophils % (A) 0.6 %; Eosinophils % (A) 4.8 %; Lymphocytes # (A) 1.43 X 10*3/uL (0.90-5.00); Lymphocytes % (A) 11.4 %; MCHC 31.3 g/dL (32.0-37.0); MCV 92.8 fL (80.0-97.0); Mean Platelet Volume 8.9 fL (9.5-12.2); Monocytes # (A) 1.13 X 10*3/uL (0.20-1.00); Neutrophils # (A) 9.29 X 10*3/uL (1.80-7.70); Neutrophils % (A) 73.7 %; Platelet Count 467 X 10*3/uL (140-440); RBC 3.45 X 10*6/uL (4.10-5.20); WBC 12.58 X 10*3/uL (4.50-10.00)
[2020-11-11 10:13] LABS: African American GFR (CKD) 25.2 (60.0-200.0); Albumin 2.5 g/dL (3.80-4.90); Albumin/Globulin Ratio 0.74 (1.60-3.17); Calcium 7.7 mg/dL (8.7-10.3); Globulin 3.4 g/dL (1.6-3.3); Magnesium 2.1 mg/dL (1.5-2.4); Non-African American GFR(CKD) 21.7 (60.0-200.0); Potassium 4.2 mmol/L (3.5-5.5); Total Bilirubin 0.2 mg/dL (0.2-1.2); Total Protein 5.9 g/dL (6.2-8.2)
--- NOTE | 2020-11-11 11:01 | P.PN ---
Subjective Progress Note Date: 11/11/20 Feels okay, no chest pain no abdominal pain no nausea no vomiting no dizziness is in bed, does not appear to be in distress. On 3 L of oxygen. Objective - Vital Signs Vital signs: Vital Signs Temp 97.6 F 11/11/20 07:09 Pulse 89 11/11/20 07:09 Resp 16 11/11/20 02:00 BP 91/53 11/11/20 07:09 Pulse Ox 95 11/11/20 09:29 Intake & Output 11/10/20 11/11/20 11/11/20 18:59 06:59 18:59 Output Total 600 450 Balance -600 -450 Weight 117.934 kg Output: Urine 600 450 Other: Voiding Method Incontinent Incontinent External Catheter External Catheter - Exam Constitutional: No acute distress, conversant, pleasant Eyes: Anicteric sclerae, moist conjunctiva ENMT: NC/AT Neck:Supple Lungs: Clear to auscultation, Clear to percussion, Normal respiratory effort, no accessory muscle use Cardiovascular: Heart regular in rate and rhythm, No murmurs, gallops, or rubs no peripheral edema Abdominal: Soft Nontender, non distended Extremities:No digital cyanosis No clubbing, 1+ bilateral lower extremity edema Psychiatric: Alert and oriented to person, place and time Neuro: Muscles Strength 5/5 in all 4 extremities, Sensation to light touch grossly present throughout, Cranial nerves II-XII grossly intact. - Labs CBC & Chem 7: 11/11/20 06:25 11/11/20 06:25 Labs: Abnormal Lab Results - Last 24 Hours (Table) 11/10/20 11/10/20 11/11/20 Range/Units 06:20 06:20 06:25 WBC 13.25 H (4.50-10.00) X 10*3/uL RBC 3.52 L (4.10-5.20) X 10*6/uL Hgb 10.0 L (12.0-15.0) g/dL Hct 32.5 L (37.2-46.3) % MCHC 30.8 L (32.0-37.0) g/dL Plt Count 471 H (140-440) X 10*3/uL MPV 9.0 L (9.5-12.2) fL Immature Gran # 0.07 H (0.00-0.04) X 10*3/uL Neutrophils # 9.51 H (1.80-7.70) X 10*3/uL Monocytes # 1.14 H (0.20-1.00) X 10*3/uL Eosinophils # 0.52 H (0.04-0.35) X 10*3/uL Carbon Dioxide 21.0 L (21.6-31.8) mmol/L BUN 50.0 H 52.0 H (9.0-27.0) mg/dL Creatinine 1.8 H 2.0 H (0.6-1.5) mg/dL Est GFR (CKD-EPI)AfAm 28.6 L 25.2 L (60.0-200.0) Est GFR (CKD-EPI)NonAf 24.7 L 21.7 L (60.0-200.0) BUN/Creatinine Ratio 27.78 H 26.00 H (12.00-20.00) Ratio Calcium 7.9 L 7.7 L (8.7-10.3) mg/dL Total Protein 5.9 L (6.2-8.2) g/dL Albumin 2.50 L (3.80-4.90) g/dL Globulin 3.4 H (1.6-3.3) g/dL Albumin/Globulin Ratio 0.74 L (1.60-3.17) g/dL 11/11/20 Range/Units 06:25 WBC 12.58 H (4.50-10.00) X 10*3/uL RBC 3.45 L (4.10-5.20) X 10*6/uL Hgb 10.0 L (12.0-15.0) g/dL Hct 32.0 L (37.2-46.3) % MCHC 31.3 L (32.0-37.0) g/dL Plt Count 467 H (140-440) X 10*3/uL MPV 8.9 L (9.5-12.2) fL Immature Gran # 0.06 H (0.00-0.04) X 10*3/uL Neutrophils # 9.29 H (1.80-7.70) X 10*3/uL Monocytes # 1.13 H (0.20-1.00) X 10*3/uL Eosinophils # 0.60 H (0.04-0.35) X 10*3/uL Carbon Dioxide (21.6-31.8) mmol/L BUN (9.0-27.0) mg/dL Creatinine (0.6-1.5) mg/dL Est GFR (CKD-EPI)AfAm (60.0-200.0) Est GFR (CKD-EPI)NonAf (60.0-200.0) BUN/Creatinine Ratio (12.00-20.00) Ratio Calcium (8.7-10.3) mg/dL Total Protein (6.2-8.2) g/dL Albumin (3.80-4.90) g/dL Globulin (1.6-3.3) g/dL Albumin/Globulin Ratio (1.60-3.17) g/dL Microbiology - Last 24 Hours (Table) 11/09/20 03:54 Urine Culture - Final Urine,Voided Klebsiella oxytoca 11/09/20 18:13 Blood Culture - Preliminary Blood No Growth after 24 hours Assessment and Plan Plan: 1. cellulitis possibly infected decubitus ulcer present on admission : Continue antibiotics change to cefepime, wound care consult 2. JUAN CARLOS serum creatinine 1.5, increased up to 2. Monitor, avoid nephrotoxins. 3. Acute UTI Klebsiella: Change antibiotics to cefepime chronic conditions P. afib: On Xarelto metoprolol chronic lymphedema bilaterally COPD without exacerbation hypertension essential arthritis social services specialist for discharge planning , pending rehab CODE STATUS:full code DVT prophylaxis: Xarelto Discussed with: Patient, nurse Anticipated discharge place: [facility] pending clinical progression
[2020-11-11] MEDS: CEFEPIME 1 GM in SODIUM CHLORIDE 0.9% 50 ML IVPB SCH ×2 (11:37→23:25)
[2020-11-11] MEDS: RIVAROXABAN 15 MG TAB PO SCH (19:33)
[2020-11-12] MEDS: lisinopriL 5 MG TAB PO SCH (07:32)
[2020-11-12] MEDS: METOPROLOL SUCCINATE (ER) 50 MG TAB.ER.24H PO SCH (08:02)
[2020-11-12] MEDS: PRAVASTATIN SODIUM 20 MG TAB PO SCH (08:02)
[2020-11-12 11:00] LABS: Basophils # (A) 0.07 X 10*3/uL (0.00-0.10); Basophils % (A) 0.6 %; Eosinophils % (A) 1.8 %; HGB 9.1 g/dL (12.0-15.0); Lymphocytes # (A) 1.57 X 10*3/uL (0.90-5.00); Lymphocytes % (A) 13.9 %; MCH 28.8 pg (27.0-32.0); MCHC 31.4 g/dL (32.0-37.0); MCV 91.8 fL (80.0-97.0); Mean Platelet Volume 8.9 fL (9.5-12.2); Monocytes # (A) 1.12 X 10*3/uL (0.20-1.00); Monocytes % (A) 9.9 %; Neutrophils # (A) 8.27 X 10*3/uL (1.80-7.70); Neutrophils % (A) 73.4 %; Platelet Count 438 X 10*3/uL (140-440); RBC 3.16 X 10*6/uL (4.10-5.20); RDW 13.2 % (11.5-14.5); WBC 11.27 X 10*3/uL (4.50-10.00)
[2020-11-12 11:37] LABS: African American GFR (CKD) 20.2 (60.0-200.0); Albumin 2.4 g/dL (3.80-4.90); Albumin/Globulin Ratio 0.73 (1.60-3.17); Anion Gap 9.3 mmol/L (4.00-12.00); BUN/Creat Ratio 23.75 Ratio (12.00-20.00); Calcium 7.5 mg/dL (8.7-10.3); Carbon Dioxide 19.7 mmol/L (21.6-31.8); Globulin 3.3 g/dL (1.6-3.3); Non-African American GFR(CKD) 17.4 (60.0-200.0); Potassium 4.1 mmol/L (3.5-5.5); Total Bilirubin 0.2 mg/dL (0.2-1.2); Total Protein 5.7 g/dL (6.2-8.2)
[2020-11-12] MEDS ORDERED: SODIUM CHLORIDE 0.9% 1,000 ML IV ONE (12:56)
[2020-11-12] MEDS: CEFEPIME 1 GM in SODIUM CHLORIDE 0.9% 50 ML IVPB SCH ×2 (13:07→23:49)
--- NOTE | 2020-11-12 13:13 | P.CONS ---
History of Present Illness - Reason for Consult Consult date: 11/12/20 Wound care - History of Present Illness This is an 89-year-old patient being seen by the wound care center on [address]. for nonhealing ulceration to the sacrum, patient has skin breakdown to bilateral breath, bilateral thighs, and bilateral groins. Patient is a poor historian. She does state that she lives at home with her son and utilizes a walker she has history of chronic lymphedema. Patient does not know how long the ulcerations have been there. She also does not routinely treat them at home. Bilateral breasts, bilateral groin and bilateral thigh ulcerations are macerations with no open areas the area is a weeping. The sacral ulceration is a stage II pressure ulcer with fatty layer exposure. Is a cluster of 3 ulcerations with no granulation seen within the wound bed with significant amount of slough. The a cynthia wound shows maceration and excoriation. Patient's past medical history significant for COPD, fibromyalgia, GERD, hyperlipidemia, hypertension, rheumatoid arthritis. She is a former smoker. She smokes half a pack for 45 years and quit 18 years ago. Patient denies diabetes. Review Of Systems: Constitutional: No fever, no chills, no night sweats. No weight change. No weakness, fatigue or lethargy. No daytime sleepiness. Integumentary:reports wounds, no lesions. No rash or pruritus. No unusual bruising. No change in hair or nails. Physical exam: General Appearance: Alert, cooperative, no distress, appears stated age. Skin: See HPI all other Skin color, texture, tugor decreased, lymphedema noted to bilateral lower extremities Neurologic: Alert oriented x2 Assessment: 1. Stage II pressure ulcer sacrum 2. Maceration periwound 3. Maceration to other skin Plan: 1. Apply triad to sacrum daily. Turn patient every 2 hours. Utilize the surface of rhythm for the appropriate surface. When patient is sitting in chair utilize the waffle cushion. 2. All other ulcerations apply zinc barrier cream to the sites daily. Keep the area dry. Thank you for the consultation any questions please contact the wound care center DNP note has been reviewed and discussed with Dr. Hart and the impression and plan of care has been directed as dictated. Past Medical History Past Medical History: COPD, Fibromyalgia, GERD/Reflux, Hyperlipidemia, Hypertension, Osteoarthritis (OA), Rheumatoid Arthritis (RA) Additional Past Medical History / Comment(s): IBS, spinal stenosis, basal cell carcinoma History of Any Multi-Drug Resistant Organisms: None Reported Past Surgical History: Appendectomy, Hysterectomy, Orthopedic Surgery, Tonsillectomy Additional Past Surgical History / Comment(s): colonoscopy Past Anesthesia/Blood Transfusion Reactions: No Reported Reaction Past Psychological History: No Psychological Hx Reported, Depression Smoking Status: Former smoker Past Alcohol Use History: None Reported Additional Past Alcohol Use History / Comment(s): She was a smoker of half pack a day for 45 years. She quit 18 years ago. She denies any medical marijuana, marijuana or street drug use. Patient denies any alcohol use or abuse. 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 She is currently living at home with her . There are no pets in the home. They have traveled in the past to [place] but has been a few years. Past Drug Use History: None Reported - Past Family History Mother Family Medical History: Respiratory Disorder Father Family Medical History: Cancer Sister(s) Family Medical History: Cancer Medications and Allergies Home Medications Medication Instructions Recorded Confirmed Type Furosemide [Lasix] 60 mg PO DAILY 11/09/20 11/09/20 History Metoprolol Succinate [Toprol XL] 50 mg PO DAILY 11/09/20 11/09/20 History Pravastatin Sodium [Pravachol] 20 mg PO DAILY 11/09/20 11/09/20 History Rivaroxaban [Xarelto] 15 mg PO HS 11/09/20 11/09/20 History lisinopriL [Zestril] 5 mg PO DAILY 11/09/20 11/09/20 History Sulfamethox-Tmp 800-160Mg [Bactrim 1 tab PO Q12HR 7 Days #14 tab 11/12/20 Rx DS 800-160 mg] Allergies Allergy/AdvReac Type Severity Reaction Status Date / Time No Known Allergies Allergy Verified 11/09/20 08:29 Physical Exam Vitals: Vital Signs Temp Pulse Resp BP Pulse Ox 11/12/20 07:37 98.3 F 85 18 92/56 93 L 11/12/20 05:52 95/65 11/12/20 03:30 112/75 11/12/20 01:02 98.7 F 80 88/50 97 11/11/20 19:20 97.9 F 81 16 118/69 97 11/11/20 16:22 92 L 11/11/20 14:00 97.5 F L 75 18 112/71 92 L Intake and Output 11/11/20 11/12/20 11/12/20 22:59 06:59 14:59 Output Total 700 200 Balance -700 -200 Output: Urine 700 200 Other: Voiding Method Incontinent External Catheter # Bowel Movements 2 Results CBC & Chem 7: 11/12/20 07:17 11/12/20 07:17 Labs: Abnormal Lab Results - Last 24 Hours (Table) 11/12/20 11/12/20 Range/Units 07:17 07:17 WBC 11.27 H (4.50-10.00) X 10*3/uL RBC 3.16 L (4.10-5.20) X 10*6/uL Hgb 9.1 L (12.0-15.0) g/dL Hct 29.0 L (37.2-46.3) % MCHC 31.4 L (32.0-37.0) g/dL MPV 8.9 L (9.5-12.2) fL Neutrophils # 8.27 H (1.80-7.70) X 10*3/uL Monocytes # 1.12 H (0.20-1.00) X 10*3/uL Carbon Dioxide 19.7 L (21.6-31.8) mmol/L BUN 57.0 H (9.0-27.0) mg/dL Creatinine 2.4 H (0.6-1.5) mg/dL Est GFR (CKD-EPI)AfAm 20.2 L (60.0-200.0) Est GFR (CKD-EPI)NonAf 17.4 L (60.0-200.0) BUN/Creatinine Ratio 23.75 H (12.00-20.00) Ratio Calcium 7.5 L (8.7-10.3) mg/dL Total Protein 5.7 L (6.2-8.2) g/dL Albumin 2.40 L (3.80-4.90) g/dL Albumin/Globulin Ratio 0.73 L (1.60-3.17) g/dL Microbiology - Last 24 Hours (Table) 11/09/20 18:13 Blood Culture - Preliminary Blood No Growth after 48 hours 11/09/20 03:54 Urine Culture - Final Urine,Voided Klebsiella oxytoca Assessment and Plan (1) Pressure ulcer of sacral region, stage 2 Current Visit: Yes Status: Acute Code(s): L89.152 - PRESSURE ULCER OF SACRAL REGION, STAGE 2 SNOMED Code(s): 315737854 (2) Maceration of periwound skin Current Visit: Yes Status: Acute Code(s): R23.9 - UNSPECIFIED SKIN CHANGES SNOMED Code(s): 675248602 (3) Maceration of skin Current Visit: Yes Status: Acute Code(s): L98.8 - OTH DISRD OF THE SKIN AND SUBCUTANEOUS TISSUE SNOMED Code(s): 1839693
--- NOTE | 2020-11-12 13:16 | P.PN ---
Subjective Progress Note Date: 11/12/20 Feels okay, no chest pain no abdominal pain no nausea no vomiting. on 3 L oxygen Objective - Vital Signs Vital signs: Vital Signs Temp 98.3 F 11/12/20 07:37 Pulse 85 11/12/20 07:37 Resp 18 11/12/20 07:37 BP 92/56 11/12/20 07:37 Pulse Ox 93 L 11/12/20 07:37 Intake & Output 11/11/20 11/12/20 11/12/20 18:59 06:59 18:59 Output Total 700 200 Balance -700 -200 Output: Urine 700 200 Other: Voiding Method Incontinent External Catheter # Bowel Movements 2 - Exam Constitutional: No acute distress, conversant, pleasant Eyes: Anicteric sclerae, moist conjunctiva ENMT: NC/AT Neck:Supple Lungs: Clear to auscultation, Clear to percussion, Normal respiratory effort, no accessory muscle use Cardiovascular: Heart regular in rate and rhythm, No murmurs, gallops, or rubs no peripheral edema Abdominal: Soft Nontender, non distended Extremities:No digital cyanosis No clubbing, trace bilateral lower extremity edema Psychiatric: Alert and oriented to person, place and time Neuro: Muscles Strength 5/5 in all 4 extremities, Sensation to light touch grossly present throughout, Cranial nerves II-XII grossly intact. - Labs CBC & Chem 7: 11/12/20 07:17 11/12/20 07:17 Labs: Abnormal Lab Results - Last 24 Hours (Table) 11/12/20 11/12/20 Range/Units 07:17 07:17 WBC 11.27 H (4.50-10.00) X 10*3/uL RBC 3.16 L (4.10-5.20) X 10*6/uL Hgb 9.1 L (12.0-15.0) g/dL Hct 29.0 L (37.2-46.3) % MCHC 31.4 L (32.0-37.0) g/dL MPV 8.9 L (9.5-12.2) fL Neutrophils # 8.27 H (1.80-7.70) X 10*3/uL Monocytes # 1.12 H (0.20-1.00) X 10*3/uL Carbon Dioxide 19.7 L (21.6-31.8) mmol/L BUN 57.0 H (9.0-27.0) mg/dL Creatinine 2.4 H (0.6-1.5) mg/dL Est GFR (CKD-EPI)AfAm 20.2 L (60.0-200.0) Est GFR (CKD-EPI)NonAf 17.4 L (60.0-200.0) BUN/Creatinine Ratio 23.75 H (12.00-20.00) Ratio Calcium 7.5 L (8.7-10.3) mg/dL Total Protein 5.7 L (6.2-8.2) g/dL Albumin 2.40 L (3.80-4.90) g/dL Albumin/Globulin Ratio 0.73 L (1.60-3.17) g/dL Microbiology - Last 24 Hours (Table) 11/09/20 18:13 Blood Culture - Preliminary Blood No Growth after 48 hours 11/09/20 03:54 Urine Culture - Final Urine,Voided Klebsiella oxytoca Assessment and Plan Plan: 1. cellulitis possibly infected decubitus ulcer present on admission : Continue antibiotics change to cefepime, wound care consult 2. JUAN CARLOS serum creatinine 1.5, increased up to 2.4. Monitor, avoid nephrotoxins. help Lasix since yesterday , give 1 L NS bolus. consult nephrology 3. Acute UTI Klebsiella: continue cefepime chronic conditions P. 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
[2020-11-12] MEDS: RIVAROXABAN 15 MG TAB PO SCH (19:26)
[2020-11-13 09:50] LABS: Basophils # (A) 0.05 X 10*3/uL (0.00-0.10); Basophils % (A) 0.5 %; Eosinophils # (A) 0.22 X 10*3/uL (0.04-0.35); Eosinophils % (A) 2.3 %; HCT 29.5 % (37.2-46.3); HGB 9.2 g/dL (12.0-15.0); Lymphocytes # (A) 1.69 X 10*3/uL (0.90-5.00); Lymphocytes % (A) 17.4 %; MCH 29.2 pg (27.0-32.0); MCHC 31.2 g/dL (32.0-37.0); MCV 93.7 fL (80.0-97.0); Mean Platelet Volume 8.7 fL (9.5-12.2); Monocytes # (A) 0.89 X 10*3/uL (0.20-1.00); Monocytes % (A) 9.2 %; Neutrophils # (A) 6.82 X 10*3/uL (1.80-7.70); Neutrophils % (A) 70.2 %; Platelet Count 450 X 10*3/uL (140-440); RBC 3.15 X 10*6/uL (4.10-5.20); RDW 13.5 % (11.5-14.5); WBC 9.71 X 10*3/uL (4.50-10.00)
[2020-11-13] MEDS: PRAVASTATIN SODIUM 20 MG TAB PO SCH (10:29)
[2020-11-13] MEDS: MIDODRINE 5 MG TAB PO SCH ×2 (10:29→18:20)
[2020-11-13] MEDS: METOPROLOL SUCCINATE (ER) 50 MG TAB.ER.24H PO SCH (10:29)
--- NOTE | 2020-11-13 11:10 | P.PN ---
Subjective Progress Note Date: 11/13/20 Feels okay, no chest pain no abdominal pain no nausea no vomiting. on 3 L oxygen . Has intermittent episodes of diarrhea. Objective - Vital Signs Vital signs: Vital Signs Temp 97.8 F 11/13/20 07:52 Pulse 89 11/13/20 07:52 Resp 16 11/13/20 07:52 BP 98/49 11/13/20 07:52 Pulse Ox 95 11/13/20 07:52 Intake & Output 11/12/20 11/13/20 11/13/20 18:59 06:59 18:59 Intake Total 1000 Output Total 202 Balance 798 Intake: Intake, IV Titration 1000 Amount Sodium Chloride 0.9% 1, 1000 000 ml @ 999 mls/hr IV . Q1H1M ONE Rx#:[id number] Output: Urine 200 Stool 2 Other: Voiding Method Incontinent External Catheter # Voids 2 1 # Bowel Movements 1 - Exam Constitutional: No acute distress, conversant, pleasant Eyes: Anicteric sclerae, moist conjunctiva ENMT: NC/AT Neck:Supple Lungs: Clear to auscultation, Clear to percussion, Normal respiratory effort, no accessory muscle use Cardiovascular: Heart regular in rate and rhythm, No murmurs, gallops, or rubs no peripheral edema Abdominal: Soft Nontender, non distended Extremities: no cce Psychiatric: Alert and oriented to person, place and time Neuro: Muscles Strength 5/5 in all 4 extremities, Sensation to light touch grossly present throughout, Cranial nerves II-XII grossly intact. - Labs CBC & Chem 7: 11/13/20 06:07 11/12/20 07:17 Labs: Abnormal Lab Results - Last 24 Hours (Table) 11/12/20 11/13/20 Range/Units 07:17 06:07 RBC 3.15 L (4.10-5.20) X 10*6/uL Hgb 9.2 L (12.0-15.0) g/dL Hct 29.5 L (37.2-46.3) % MCHC 31.2 L (32.0-37.0) g/dL Plt Count 450 H (140-440) X 10*3/uL MPV 8.7 L (9.5-12.2) fL Carbon Dioxide 19.7 L (21.6-31.8) mmol/L BUN 57.0 H (9.0-27.0) mg/dL Creatinine 2.4 H (0.6-1.5) mg/dL Est GFR (CKD-EPI)AfAm 20.2 L (60.0-200.0) Est GFR (CKD-EPI)NonAf 17.4 L (60.0-200.0) BUN/Creatinine Ratio 23.75 H (12.00-20.00) Ratio Calcium 7.5 L (8.7-10.3) mg/dL Total Protein 5.7 L (6.2-8.2) g/dL Albumin 2.40 L (3.80-4.90) g/dL Albumin/Globulin Ratio 0.73 L (1.60-3.17) g/dL Microbiology - Last 24 Hours (Table) 11/09/20 18:13 Blood Culture - Preliminary Blood No Growth after 72 hours Assessment and Plan Plan: 1. cellulitis possibly infected decubitus ulcer present on admission : Continue antibiotics change to cefepime, wound care consult 2. JUAN CARLOS serum creatinine 1.5, increased up to 2.4. Monitor, avoid nephrotoxins. holding Lasix , given 1 L NS bolus 11/12/2020. Start normal saline at 75 mL per hour. consult nephrology . Pending labs today 3. Acute UTI Klebsiella: continue cefepime chronic conditions P. 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
[2020-11-13 11:37] LABS: African American GFR (CKD) 25.2 (60.0-200.0); Albumin 2.4 g/dL (3.80-4.90); Albumin/Globulin Ratio 0.65 (1.60-3.17); Anion Gap 9.3 mmol/L (4.00-12.00); Calcium 7.8 mg/dL (8.7-10.3); Carbon Dioxide 17.7 mmol/L (21.6-31.8); Globulin 3.7 g/dL (1.6-3.3); Non-African American GFR(CKD) 21.7 (60.0-200.0); Potassium 3.8 mmol/L (3.5-5.5); Total Bilirubin 0.3 mg/dL (0.3-1.2); Total Protein 6.1 g/dL (6.2-8.2)
[2020-11-13] MEDS: CEFEPIME 1 GM in SODIUM CHLORIDE 0.9% 50 ML IVPB SCH (13:03)
[2020-11-13] MEDS: SODIUM CHLORIDE 0.9% 1,000 ML IV SCH (13:04)
--- NOTE | 2020-11-13 16:44 | CONS ---
CONSULTATION REASON FOR CONSULTATION: Renal failure. HISTORY OF PRESENT ILLNESS: The patient is an 89-year-old female who was admitted to the hospital on 11/08 with complaints of generalized weakness and history of fall prior to admission. Patient was noted to have infected decubitus ulcers and is maintained on antibiotics. Her serum creatinine was 1.7 on admission, decreased to 1.5 and then increased to 2.4 on 11/12/2020. Previous creatinine only available from 2013, when it was 0.7. It is noted that patient's blood pressure had has been low with systolic in the 80s on 11/10 and 11/11/2020. She had been on RANDALL inhibitors, which were held today. Currently patient has an external catheter; about 200 mL of urine was documented yesterday; 24- hour output about 900 mL. Patient denies any chest pains, fever, chills. Denies any previous history of kidney diseases. PAST MEDICAL HISTORY: COPD, fibromyalgia, gastroesophageal reflux disease, hyperlipidemia, hypertension, rheumatoid arthritis, osteoarthritis, spinal stenosis, IBS. PAST SURGICAL HISTORY: Appendectomy, hysterectomy, tonsillectomy, colonoscopy. SOCIAL HISTORY: Patient is a former smoker. No history of drug abuse or alcohol abuse. MEDICATIONS: Medications prior to admission: Lasix, Toprol, Pravachol, Xarelto, Zestril, Bactrim. ALLERGIES: NONE. PHYSICAL EXAMINATION: Patient is comfortable, awake. She is not in any acute distress. Blood pressure 98/49, heart rate 89 per minute. She is afebrile. EXAMINATION OF THE HEART: S1 and S2. EXAMINATION OF LUNGS: Decreased breath sounds at bases. ABDOMEN: Soft, non-tender. Examination of lower extremities shows chronic skin changes with chronic edema mostly. THERMODYNAMICS ENGINEER exam is grossly intact. LABS: Hemoglobin 9.2 g/dL, sodium 140, potassium 3.8, chloride 113. CO2 is 17.7, BUN 50, creatinine 2.0. UA shows 1+ protein, trace blood, WBCs more than 180. COVID PCR negative. Chest x-ray from admission on 11/09/2020 shows bilateral interstitial prominence, possible edema, and hilar opacities were noted. ASSESSMENT: 1. Acute kidney injury secondary to hypotension, hypoperfusion, hemodynamic acute tubular necrosis, currently nonoliguric. I will discontinue the RANDALL inhibitors. May continue with the IV fluids for now. However, we need to be careful, given the chest x-ray findings and history of chronic edema, although currently patient does not appear to be in CHF. 2. Hypotension. Check random cortisol level. Add midodrine. Hold off on antihypertensive medications, possibly related to UTI. 3. Urinary tract infection. Urine culture growing Klebsiella oxytoca, maintained on antibiotics. 4. Possible underlying chronic kidney disease. 5. Metabolic acidosis associated with renal failure. PLAN: Decrease IV fluids to 50 mL/hour. Continue off of RANDALL inhibitors. Add midodrine to help with the hypotension. Check random cortisol level. Thank you for this consultation. Will continue to follow the patient with you during her hospitalization. MMTOML / IJN: [id number] /
[2020-11-13] MEDS: RIVAROXABAN 15 MG TAB PO SCH (20:59)
[2020-11-14] MEDS: CEFEPIME 1 GM in SODIUM CHLORIDE 0.9% 50 ML IVPB SCH ×3 (00:22→23:36)
[2020-11-14] MEDS: SODIUM CHLORIDE 0.9% 1,000 ML IV SCH ×2 (02:05→20:46)
[2020-11-14] MEDS: ONDANSETRON 4 MG/2 ML VIAL IVP PRN (03:13)
[2020-11-14 06:39] LABS: Basophils # (A) 0.1 k/uL (0-0.2); Basophils % (A) 1 %; Eosinophils # (A) 0.8 k/uL (0-0.7); Eosinophils % (A) 7 %; HCT 32.2 % (34.0-46.0); Hypochromasia Slight; Lymphocytes # (A) 1.7 k/uL (1.0-4.8); Lymphocytes % (A) 16 %; MCH 28.3 pg (25.0-35.0); MCHC 30.7 g/dL (31.0-37.0); MCV 92.2 fL (80.0-100.0); Mean Platelet Volume 6.9; Monocytes # (A) 0.6 k/uL (0-1.0); Monocytes % (A) 5 %; Neutrophils # (A) 7.7 k/uL (1.3-7.7); Neutrophils % (A) 70 %; Platelet Count 451 k/uL (150-450); RDW 13.4 % (11.5-15.5); WBC 10.9 k/uL (3.8-10.6)
[2020-11-14 06:43] LABS: HGB 9.9 gm/dL (11.4-16.0)
[2020-11-14] MEDS: METOPROLOL SUCCINATE (ER) 50 MG TAB.ER.24H PO SCH (07:12)
[2020-11-14] MEDS: MIDODRINE 5 MG TAB PO SCH ×2 (07:12→16:48)
[2020-11-14] MEDS: PRAVASTATIN SODIUM 20 MG TAB PO SCH (07:13)
[2020-11-14 08:13] LABS: ALT 13 U/L (4-34); AST 26 U/L (14-36); African American GFR (CKD) 36 (>60 ml/min/1.73 sqM); Albumin 2.3 g/dL (3.5-5.0); Albumin/Globulin Ratio 0.6; Alkaline Phosphatase 60 U/L (38-126); Anion Gap 8 mmol/L; Blood Urea Nitrogen 44 mg/dL (7-17); Calcium 8.3 mg/dL (8.4-10.2); Carbon Dioxide 17 mmol/L (22-30); Chloride 114 mmol/L (98-107); Globulin 3.9 g/dL; Glucose 81 mg/dL (74-99); Non-African American GFR(CKD) 31 (>60 ml/min/1.73 sqM); Potassium 3.9 mmol/L (3.5-5.1); Sodium 139 mmol/L (137-145); Total Bilirubin 0.7 mg/dL (0.2-1.3); Total Protein 6.2 g/dL (6.3-8.2)
--- NOTE | 2020-11-14 09:16 | P.PN ---
Subjective Progress Note Date: 11/14/20 Feels okay, no chest pain no abdominal pain no nausea no vomiting. on 3 L oxygen . Has intermittent episodes of diarrhea. Remains afebrile. Objective - Vital Signs Vital signs: Vital Signs Temp 98.5 F 11/14/20 07:16 Pulse 78 11/14/20 07:16 Resp 18 11/14/20 07:45 BP 116/67 11/14/20 07:16 Pulse Ox 98 11/14/20 07:16 Intake & Output 11/13/20 11/14/20 11/14/20 18:59 06:59 18:59 Intake Total 750 Output Total 226 Balance -226 750 Intake: Intake, IV Titration 750 Amount Cefepime 1 gm In Sodium 50 Chloride 0.9% 50 ml @ 12. 5 mls/hr IVPB Q12H [facility] Rx #:[id number] Sodium Chloride 0.9% 1, 700 000 ml @ 50 mls/hr IV . Q20H EL[facility] Rx#:[id number] Output: Urine 225 Stool 1 Other: Voiding Method Incontinent Diaper Diaper External Catheter Incontinent Incontinent - Exam Constitutional: No acute distress, conversant, pleasant Eyes: Anicteric sclerae ENMT: NC/AT Neck:Supple Lungs: Clear to auscultation, Clear to percussion, Normal respiratory effort, no accessory muscle use Cardiovascular: Heart regular in rate and rhythm, No murmurs, gallops, or rubs no peripheral edema Abdominal: Soft Nontender, non distended Extremities: no cce Psychiatric: Alert and oriented to person, place and time Neuro: Muscles Strength 5/5 in all 4 extremities Cranial nerves II-XII grossly intact. - Labs CBC & Chem 7: 11/14/20 06:17 11/14/20 06:17 Labs: Abnormal Lab Results - Last 24 Hours (Table) 11/13/20 11/13/20 11/14/20 Range/Units 06:07 06:07 06:17 WBC 10.9 H (3.8-10.6) k/uL RBC 3.15 L 3.50 L (4.10-5.20) X 10*6/uL Hgb 9.2 L 9.9 L D (12.0-15.0) g/dL Hct 29.5 L 32.2 L (37.2-46.3) % MCHC 31.2 L 30.7 L (32.0-37.0) g/dL Plt Count 450 H 451 H (140-440) X 10*3/uL MPV 8.7 L (9.5-12.2) fL Eosinophils # 0.8 H (0-0.7) k/uL Chloride 113 H (96-109) mmol/L Carbon Dioxide 17.7 L (21.6-31.8) mmol/L BUN 50.0 H (9.0-27.0) mg/dL Creatinine 2.0 H (0.6-1.5) mg/dL Est GFR (CKD-EPI)AfAm 25.2 L (60.0-200.0) Est GFR (CKD-EPI)NonAf 21.7 L (60.0-200.0) BUN/Creatinine Ratio 25.00 H (12.00-20.00) Ratio Glucose 123 H (70-110) mg/dL Calcium 7.8 L (8.7-10.3) mg/dL Total Protein 6.1 L (6.2-8.2) g/dL Albumin 2.40 L (3.80-4.90) g/dL Globulin 3.7 H (1.6-3.3) g/dL Albumin/Globulin Ratio 0.65 L (1.60-3.17) g/dL // Range/Units 06:17 WBC (3.8-10.6) k/uL RBC (4.10-5.20) X 10*6/uL Hgb (12.0-15.0) g/dL Hct (37.2-46.3) % MCHC (32.0-37.0) g/dL Plt Count (140-440) X 10*3/uL MPV (9.5-12.2) fL Eosinophils # (0-0.7) k/uL Chloride 114 H (96-109) mmol/L Carbon Dioxide 17 L (21.6-31.8) mmol/L BUN 44 H (9.0-27.0) mg/dL Creatinine 1.49 H (0.6-1.5) mg/dL Est GFR (CKD-EPI)AfAm (60.0-200.0) Est GFR (CKD-EPI)NonAf (60.0-200.0) BUN/Creatinine Ratio (12.00-20.00) Ratio Glucose (70-110) mg/dL Calcium 8.3 L (8.7-10.3) mg/dL Total Protein 6.2 L (6.2-8.2) g/dL Albumin 2.3 L (3.80-4.90) g/dL Globulin (1.6-3.3) g/dL Albumin/Globulin Ratio (1.60-3.17) g/dL Microbiology - Last 24 Hours (Table) 11/09/20 18:13 Blood Culture - Preliminary Blood No Growth after 96 hours Assessment and Plan Plan: 1. cellulitis possibly infected decubitus ulcer present on admission : Continue antibiotics change to cefepime, wound care consult, input appreciated 2. JUAN CARLOS serum creatinine 1.5, increased up to 2.4. Monitor, avoid nephrotoxins. holding Lasix , given 1 L NS bolus 11/12/2020. Continue normal saline, decrease to 50 mL per hour consult nephrology . Serum creatinine improved to 1.4. On Midodrine 3. Acute UTI Klebsiella: continue cefepime 4. Metabolic acidosis: Likely associated with acute kidney injury and diarrhea, bicarbonate 17, continue to treat underlying condition and monitor. chronic conditions P. 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
--- NOTE | 2020-11-14 14:46 | PN ---
PROGRESS NOTE Patient is seen for followup for acute kidney injury. Patient's renal function has improved significantly with creatinine going down to 1.4 from 2.4 at peak. She is currently maintained on IV fluids. The patient was hypotensive on initial admission. She has been started on midodrine and her blood pressure has improved with systolic around 117 compared to 84 mmHg on 11/11/2020. PHYSICAL EXAMINATION: On examination today, blood pressure 116/67, heart rate 78 per minute. She is afebrile. EXAMINATION OF THE HEART: S1, S2. EXAMINATION OF LUNGS: Decreased breath sounds at bases. Abdomen is soft, nontender. Examination of lower extremities shows no significant edema. Chronic skin changes are noted. Patient appears to have some degree of chronic edema. LABS: Labs show sodium 139, potassium 3.9, chloride 114, CO2 is 17, BUN 44, creatinine 1.49, hemoglobin 9.9 g/dL. ASSESSMENT: 1. Acute kidney injury secondary to hypotension, hypovolemia, improved with IV hydration and continue to hold off on the RANDALL inhibitors for now. 2. Urinary tract infection. Urine culture grew Klebsiella oxytoca. 3. Possible underlying chronic kidney disease. 4. Metabolic acidosis associated with renal failure. PLAN: Continue off of RANDALL inhibitors. Continue with midodrine. Add oral sodium bicarb. MMODL / IJN: [id number] /
[2020-11-14] MEDS: SODIUM BICARBONATE TAB 650 MG TAB PO SCH (20:04)
[2020-11-14] MEDS: RIVAROXABAN 15 MG TAB PO SCH (20:04)
[2020-11-15 01:18] VITALS: RESP 16
[2020-11-15 07:56] VITALS: BP 139/66; PULSE 70; TEMP 98.6
[2020-11-15] MEDS: METOPROLOL SUCCINATE (ER) 50 MG TAB.ER.24H PO SCH (08:19)
[2020-11-15] MEDS: MIDODRINE 5 MG TAB PO SCH (08:19)
[2020-11-15] MEDS: SODIUM BICARBONATE TAB 650 MG TAB PO SCH (08:20)
[2020-11-15] MEDS: PRAVASTATIN SODIUM 20 MG TAB PO SCH (08:20)
--- NOTE | 2020-11-15 08:47 | P.DS ---
Providers Date of admission: 11/10/20 20:04 Expected date of discharge: 11/15/20 Attending physician: Adan Alberts MD Consults: 11/12/20 12:56 Consult Physician Routine Consulting Provider: Jacquelyn Jaimes Consult Reason/Comments: alberto Do you want consulting provider notified?: Yes Primary care physician: Stated None Hospital Course: HPI: 89 year old female with chronic lymphedema , hypertension , COPD , arthritis patient comes from home, she does not elaborate during the interview, but reports that she lives in her own home, with her son who does not really pay a lot of attention to her needs. she ambulates using a walker, but over past 2 years she has been getting worse, and over past 1 week she has not been able to walk around anymore due to debility and feeling very weak despite trying to use a walker. she has chronic lymphedema and noticed weeping from her legs . she otherwise denies any fever, chills, chest pain , nausea or vomiting, . she denies SOB at rest, but she gets winded easily if she tries to stand up. she denies any GI bleeding . she does not have a doctor , but used to have a visiting nurse. she is not sure what medications she is supposed to take, but claims that there is a engineering and operations director who refills her meds she denies any GI bleeding , abd pain , nausea or vomiting . she admits to having a fall about 2 weeks ago, but she fell safely on a couch in the ED< blood work showed, leukocytosis , elevated creatinine CXR suggestive of pulmonary congestion , and possible hilar mass. Hospital course and treatment: Patient was admitted to the hospital because of debility. She was found to have cellulitis with possible infected decubitus ulcer. She was treated with cefepime. She continued to improve. She was evaluated by the wound care team for stage II pressure ulcer in the sacrum. Wound care was applied. She also had diarrhea upon arrival but C. diff was negative. He developed an acute kidney injury secondary to hypovolemia with a creatinine peak at 2.4, diuretics and souleymane inhibitors were placed on hold, patient was started briefly on Midodrine and IV fluids, serum creatinine has improved down to 1.4. Diarrhea is improving. She also had developed metabolic acidosis with a bicarbonate down to 17 and was started on oral bicarbonate. She was evaluated by nephrology team. She also had an acute UTI and was treated with cefepime. Urine cultures consistent with Klebsiella. She was evaluated by PT OT recommended rehab. Patient will be discharged to physical rehab. Diuretics and souleymane inhibitors will continue to be placed on hold. Patient will be prescribed oral bicarbonate. She will follow up with PCP and nephrology as an outpatient. Patient Condition at Discharge: Stable Plan - Discharge Summary Discharge Rx Participant: Yes New Discharge Prescriptions: New Sulfamethox-Tmp 800-160Mg [Bactrim DS 800-160 mg] 1 tab PO Q12HR 7 Days #14 tab Sodium Bicarbonate Tab 650 mg PO BID 7 Days #14 tab Continue Pravastatin Sodium [Pravachol] 20 mg PO DAILY Metoprolol Succinate [Toprol XL] 50 mg PO DAILY Rivaroxaban [Xarelto] 15 mg PO HS Discontinued lisinopriL [Zestril] 5 mg PO DAILY Furosemide [Lasix] 60 mg PO DAILY Discharge Medication List Metoprolol Succinate [Toprol XL] 50 mg PO DAILY 11/09/20 [History] Pravastatin Sodium [Pravachol] 20 mg PO DAILY 11/09/20 [History] Rivaroxaban [Xarelto] 15 mg PO HS 11/09/20 [History] Sulfamethox-Tmp 800-160Mg [Bactrim DS 800-160 mg] 1 tab PO Q12HR 7 Days #14 tab 11/12/20 [Rx] Sodium Bicarbonate Tab 650 mg PO BID 7 Days #14 tab 11/15/20 [Rx] Follow up Appointment(s)/Referral(s): Jacquelyn Jaimes MD [STAFF PHYSICIAN] - 2 Weeks None,Stated [Primary Care Provider] - 1-2 days Discharge Disposition: TRANSFER TO SNF/ECF
[2020-11-15 09:19] LABS: Basophils # (A) 0.08 X 10*3/uL (0.00-0.10); Basophils % (A) 0.7 %; Eosinophils # (A) 0.94 X 10*3/uL (0.04-0.35); Eosinophils % (A) 7.7 %; HCT 30.5 % (37.2-46.3); HGB 9.4 g/dL (12.0-15.0); Lymphocytes # (A) 2.22 X 10*3/uL (0.90-5.00); Lymphocytes % (A) 18.2 %; MCH 29.1 pg (27.0-32.0); MCHC 30.8 g/dL (32.0-37.0); MCV 94.4 fL (80.0-97.0); Mean Platelet Volume 8.7 fL (9.5-12.2); Monocytes # (A) 1.23 X 10*3/uL (0.20-1.00); Monocytes % (A) 10.1 %; Neutrophils # (A) 7.65 X 10*3/uL (1.80-7.70); Neutrophils % (A) 62.7 %; Platelet Count 458 X 10*3/uL (140-440); RBC 3.23 X 10*6/uL (4.10-5.20); RDW 13.7 % (11.5-14.5); WBC 12.19 X 10*3/uL (4.50-10.00)
[2020-11-15] MEDS: CEFEPIME 1 GM in SODIUM CHLORIDE 0.9% 50 ML IVPB SCH (11:34)
[2020-11-15 11:35] LABS: African American GFR (CKD) 46.7 (60.0-200.0); Albumin 2.4 g/dL (3.80-4.90); Albumin/Globulin Ratio 0.69 (1.60-3.17); BUN/Creat Ratio 31.67 Ratio (12.00-20.00); Calcium 8.1 mg/dL (8.7-10.3); Globulin 3.5 g/dL (1.6-3.3); Non-African American GFR(CKD) 40.3 (60.0-200.0); Potassium 3.6 mmol/L (3.5-5.5); Total Bilirubin 0.3 mg/dL (0.2-1.2); Total Protein 5.9 g/dL (6.2-8.2)
--- NOTE | 2020-11-15 14:49 | PN ---
PROGRESS NOTE Patient is seen for followup for acute kidney injury, mostly associated with hypotension hypoperfusion. Serum creatinine has improved significantly and is down to 1.2 from 2.4. The patient was maintained on IV fluids. She also has been started on midodrine. Blood pressures have improved currently staying about 100-114 mmHg systolic. PHYSICAL EXAMINATION: On examination today, blood pressure 100/56, heart rate 84 per minute. She is afebrile. EXAMINATION OF THE HEART: S1, S2. EXAMINATION OF THE LUNGS: Bilateral breath sounds are heard. Abdomen is soft, nontender. Examination of the lower extremities chronic skin changes no significant edema noted. There is chronic lymphedema to some degree. LABS: Labs show sodium 140, potassium 3.6, chloride 112, CO2 is 19, BUN 38, creatinine 1.2, hemoglobin 9.4 g/dL. ASSESSMENT: 1. Acute kidney injury associated with hypotension hypoperfusion currently improved significantly. The patient is eating well. We can discontinue the IV fluids. 2. Urinary tract infection. Urine culture grew Klebsiella oxytoca, maintained on cefepime. 3. Possible underlying chronic kidney disease. No previous labs available. 4. Metabolic acidosis, improved. The patient is maintained on oral sodium bicarb. PLAN: The patient is stable for discharge from nephrology standpoint. We can discontinue the midodrine and continue to hold off on RANDALL inhibitor/angiotensin receptor blockers. MMODL / IJN: [id number] /
== END 2020-11-15 13:08 | DRG 592 ==
LOC: EC 22:22 → 4SSUR 11-09 02:59 → OBSVTOIN 11-10 20:04 → 4SSUR 11-14 15:38
PROVIDERS: ADMIT Internal Medicine; ATTEND Internal Medicine
PROC: 05HB33Z Insertion of Infusion Device into Right Basilic Vein, Percutaneous Approach (ICD-10-PCS; principal; 2020-11-13 17:05)
DX: L89.152 Pressure ulcer of sacral region, stage 2 (principal); N17.0 Acute kidney failure with tubular necrosis; L03.115 Cellulitis of right lower limb; L03.116 Cellulitis of left lower limb; N39.0 Urinary tract infection, site not specified; E87.2 Acidosis; L97.109 Non-pressure chronic ulcer of unspecified thigh with unspecified severity; B96.1 Klebsiella pneumoniae [K. pneumoniae] as the cause of diseases classified elsewhere; I48.91 Unspecified atrial fibrillation; M19.90 Unspecified osteoarthritis, unspecified site; I10 Essential (primary) hypertension; J44.9 Chronic obstructive pulmonary disease, unspecified; I89.0 Lymphedema, not elsewhere classified; E78.5 Hyperlipidemia, unspecified; M06.9 Rheumatoid arthritis, unspecified; M79.7 Fibromyalgia; K21.9 Gastro-esophageal reflux disease without esophagitis; K58.0 Irritable bowel syndrome with diarrhea; Z80.0 Family history of malignant neoplasm of digestive organs; Z87.891 Personal history of nicotine dependence; Z79.01 Long term (current) use of anticoagulants; I95.9 Hypotension, unspecified; Z20.822 Contact with and (suspected) exposure to COVID-19; Z90.710 Acquired absence of both cervix and uterus; Z85.828 Personal history of other malignant neoplasm of skin; F32.9 Major depressive disorder, single episode, unspecified; E86.1 Hypovolemia; Z79.899 Other long term (current) drug therapy
CPT/HCPCS: 36410; 36415; 71045; 76937; 80048; 80053; 81001; 83605; 83735; 83880; 84100; 84443; 84484; 85025; 85610; 85730; 87040; 87077; 87086; 87186; 87324; 87636; 93005; 94760; 96365; 99285